=== PATIENT | male | born 1975 | race Caucasian/White ===

== ENCOUNTER 2022-12-05 15:58 | Emergency (ER) | payer OTHER, BC ==
[2022-12-05 16:19] LABS: BASOPHILS ABSOLUTE AUTO 0.06 10^3/uL (0.00-0.50); BASOPHILS PERCENT AUTO 0.6 % (0-1); EOSINOPHILS ABSOLUTE AUTO 0.08 10^3/uL (0.00-1.50); EOSINOPHILS PERCENT AUTO 0.9 % (0-6); HEMATOCRIT 42.8 % (42.0-52.0); HEMOGLOBIN 15.3 g/dL (14.0-18.0); IMMATURE GRAN ABSOLUTE AUTO 0.03 10^3/uL (0.00-0.49); IMMATURE GRAN PERCENT AUTO 0.3 % (0.0-4.9); LYMPHOCYTES ABSOLUTE AUTO 3.56 10^3/uL (0.60-5.00); LYMPHOCYTES PERCENT AUTO 38.3 % (24-44); MEAN CORPUSCULAR HEMOGLOBIN 29.8 pg (27.0-32.0); MEAN CORPUSCULAR HGB CONC 35.7 g/dL (32.0-36.0); MEAN CORPUSCULAR VOLUME 83.3 fL (83.0-97.0); MONOCYTES ABSOLUTE AUTO 0.86 10^3/uL (0.00-1.50); MONOCYTES PERCENT AUTO 9.2 % (0-10); NEUTROPHILS ABSOLUTE AUTO 4.71 x10^3/uL (1.80-8.00); NEUTROPHILS PERCENT AUTO 50.7 % (41-71); PLATELET COUNT,PLT 280 10^3/uL (150-400); RED BLOOD CELL COUNT 5.14 x10^6/uL (4.50-6.00); WHITE BLOOD CELL COUNT,WBC 9.3 10^3/uL (4.0-11.0)
[2022-12-05 16:31] LABS: ALANINE AMINOTRANSFERASE,ALT 27 U/L (12-78); ALKALINE PHOSPHATASE 49 U/L (46-116); ASPARTATE AMNIOTRANSFERASE,AST 18 U/L (15-37); BILIRUBIN TOTAL 0.9 mg/dL (0.0-1.0); BLOOD UREA NITROGEN,BUN 17 mg/dL (7-18); CALCIUM 9.4 mg/dL (8.4-10.1); CARBON DIOXIDE,CO2 27 mmol/L (21-32); CHLORIDE,CL 105 mEq/L (98-106); CREATININE 1.1 mg/dL (0.7-1.3); ESTIMATED GFR 83 mL/min (>=60); ETHANOL BLOOD MEDICAL < 3 mg/dL (0-3); GLUCOSE RANDOM 141 mg/dL (75-99); POTASSIUM,K 3.8 mEq/L (3.5-5.0); PROTEIN TOTAL,TP 7.3 g/dL (6.4-8.2); SODIUM,NA 141 mEq/L (136-145)
[2022-12-05] MEDS: HYDROmorphone 1 MG/ML Syringe IVPUSH ONE ×2 (16:36→18:00)
[2022-12-05] MEDS: Sodium Chloride 0.9% 1,000 ML IV ONE (16:37)
[2022-12-05] MEDS: ceFAZolin 2 GM Vial IVPUSH ONE (16:50)
[2022-12-05] MEDS ORDERED: Tranexamic Acid 1,000 MG in Sodium Chloride 0.9% 100 ML IV ONE (16:55)
[2022-12-05] MEDS: Tranexamic Acid 1,000 MG in Sodium Chloride 0.9% 100 ML IV ONE (16:56)
[2022-12-05] MEDS ORDERED: Tranexamic Acid 1,000 MG/10 ML Vial TOP ONE (17:10)
[2022-12-05] MEDS: Gentamicin 430 MG in Sodium Chloride 0.9% 100 ML IV ONE (17:13)
[2022-12-05] MEDS: Iopamidol 755 Mg/ML 100 ML Bottle IVPUSH ONE (17:35)
[2022-12-05 17:43] LABS: APPEARANCE,URINE CLEAR (CLEAR); BILIRUBIN,URINE NEGATIVE (NEGATIVE); COLOR,URINE YELLOW (YELLOW); GLUCOSE,URINE NEGATIVE (NEGATIVE); KETONES,URINE NEGATIVE (NEGATIVE); LEUKOCYTE ESTERASE,URINE TRACE (NEGATIVE); NITRITE,URINE NEGATIVE (NEGATIVE); OCCULT BLOOD,URINE NEGATIVE (NEGATIVE); PH,URINE 5.5 (4.5-8.0); PROTEIN,URINE NEGATIVE (NEGATIVE); UROBILINOGEN,URINE 0.2 EU/dL (0.2-1.0)
[2022-12-05 17:44] LABS: AMPHETAMINES,URINE NEGATIVE (NEGATIVE); BARBITURATES,URINE NEGATIVE (NEGATIVE); BENZODIAZEPINE,URINE NEGATIVE (NEGATIVE); MDMA (ECSTASY), URINE NEGATIVE (NEGATIVE); METHADONE,URINE NEGATIVE (NEGATIVE); METHAMPHETAMINES,URINE NEGATIVE (NEGATIVE); OPIATES,URINE NEGATIVE (NEGATIVE); OXYCODONE,URINE NEGATIVE (NEGATIVE); PHENCYCLIDINE,URINE NEGATIVE (NEGATIVE); TCA,URINE NEGATIVE (NEGATIVE)
[2022-12-05 17:44] LABS: RBC,URINE NOT SEEN /HPF (0-5); WBC,URINE NOT SEEN /HPF (0-5)
== END 2022-12-05 18:10 ==
LOC: CC.ED 15:58
DX: S92.001B Unspecified fracture of right calcaneus, initial encounter for open fracture (principal); S91.011A Laceration without foreign body, right ankle, initial encounter; S20.212A Contusion of left front wall of thorax, initial encounter; S90.02XA Contusion of left ankle, initial encounter; S00.81XA Abrasion of other part of head, initial encounter; W17.89XA Other fall from one level to another, initial encounter
CPT/HCPCS: 29515; 36415; 70450; 70486; 71260; 72125; 73030-LT; 73080-LT; 73610-LT; 73610-RT; 73630-LT; 73630-RT; 74177; 80053; 80305-QW; 80307; 81001; 85025; 93005; 93010; 96365; 96367; 96375; 96376; 99291; 99291-25; G0390; J0690; J1170; J1580; J3490; J7030; Q9967